=== PATIENT | female | born 1980 | race Caucasian/White ===

== ENCOUNTER → 2017-01-22 | Outpatient (REF) | payer OTHER | LOC: M LABDRAW1 15:22 | PROVIDERS: ATTEND Physician Assistant Medical | DX: E55.9 Vitamin D deficiency, unspecified (principal) ==

== ENCOUNTER → 2017-05-20 | Outpatient (REF) | payer OTHER | LOC: M LABDRAW1 13:38 | PROVIDERS: ATTEND Internal Medicine Endocrinology, Diabetes & Metabolism | DX: E55.9 Vitamin D deficiency, unspecified (principal) ==

== ENCOUNTER → 2018-03-10 | Outpatient (CLI) | payer OTHER | LOC: M SLEEP HO 12:21 | DX: G47.30 Sleep apnea, unspecified (principal) | CPT/HCPCS: G0399 ==

== ENCOUNTER → 2018-07-04 | Outpatient (REF) | payer OTHER | LOC: M SFHCPLAZ 16:59 | DX: N30.01 Acute cystitis with hematuria (principal) ==

== ENCOUNTER → 2018-08-06 | Outpatient (REF) | payer OTHER ==
[2018-08-06 12:44] LABS: ALBUMIN 3.6 GM/DL (3.2-5.2); ALBUMIN/GLOBULIN RATIO 1.33 (1.00-1.93); ALKALINE PHOSPHATASE 62 U/L (45-117); ALT/SGPT 22 U/L (12-78); ANION GAP 6 MEQ/L (8-16); AST/SGOT 10 U/L (7-37); BILIRUBIN,TOTAL 0.5 MG/DL (0.2-1.0); BLOOD UREA NITROGEN 15 MG/DL (7-18); CALCIUM LEVEL 8.8 MG/DL (8.5-10.1); CARBON DIOXIDE LEVEL 28 MEQ/L (21-32); CHLORIDE LEVEL 108 MEQ/L (98-107); CREATININE FOR GFR 0.83 MG/DL (0.55-1.30); GLOMERULAR FILTRATION RATE > 60.0 (>60); GLUCOSE, FASTING 88 MG/DL (70-100); POTASSIUM SERUM 4.5 MEQ/L (3.5-5.1); SODIUM LEVEL 142 MEQ/L (136-145); TOTAL PROTEIN 6.3 GM/DL (6.4-8.2)
[2018-08-06 13:01] LABS: TOTAL 25(OH) VITAMIN D 20.3 NG/ML (30.0-100.0)
== END ==
LOC: M SFHCPLAZ 08:58
DX: Z00.00 Encounter for general adult medical examination without abnormal findings (principal); Z86.39 Personal history of other endocrine, nutritional and metabolic disease; E55.9 Vitamin D deficiency, unspecified

== ENCOUNTER → 2018-08-19 | Outpatient (CLI) | payer OTHER | LOC: M RAD 09:15 | DX: E04.2 Nontoxic multinodular goiter (principal) | CPT/HCPCS: 76536 ==

== ENCOUNTER → 2018-09-26 | Outpatient (REF) | payer OTHER | LOC: M SMT 12:15 | DX: N39.0 Urinary tract infection, site not specified (principal) | CPT/HCPCS: 87086 ==

== ENCOUNTER → 2018-10-16 | Outpatient (CLI) | payer OTHER ==
--- NOTE | 2018-10-23 14:34 | SLEEPCENT ---
DATE OF PROCEDURE: 10/16/2018 INTERPRETATION: Nocturnal polysomnography was performed to determine pressure therapy in this patient with at least mid obstructive sleep apnea determined on a home sleep test with an respiratory arousal index (PALACIOS) of at least 5.1. She had sleep apnea syndrome symptoms consistent with excessive daytime sleepiness and nonrestorative sleep. She had failed outpatient auto CPAP in large part because of poor mask fit and significant leak. A total of 7 hours and 40 minutes of data was reviewed with 440.5 minutes identified during the entire titration. Sleep latency was 12.5 minutes. Rapid eye movement (REM) latency was 157.5 minutes. All stages of sleep were identified. Sleep efficiency was 96.7%. EKG showed normal sinus rhythm with an average heart rate of 80 beats per minute. No epileptiform discharge observed. The patient had been fit with ResMed Quattro full face mask of small size, 4 cm of water pressure was applied to the circuit and the lights were dimmed. CPAP initially begun at 4 cm of water pressure and was taken to a high of 8 cm of water pressure. However, she appeared to do best on 6 cm of water pressure, her apnea/hypopneic index (AHI) was 0 and her PALACIOS was 0.3, Oxygen saturation shanel was 90%. No significant periodic limb movements. Supine REM sleep was seen on this pressure with a reasonably good waveform. IMPRESSION: 1. Obstructive sleep apnea, at least mild, reasonably palliated on CPAP of 6 cm of water pressure including supine REM sleep. RECOMMENDATION: Recommend continuation with CPAP therapy at the above pressure via a ResMed Quattro full face mask or mask of her preference. Clinical correlation will be necessary to insure eradication of symptoms.
== END ==
LOC: M SLEEP 19:51
PROVIDERS: ATTEND Internal Medicine Pulmonary Disease
DX: G47.33 Obstructive sleep apnea (adult) (pediatric) (principal)

== ENCOUNTER → 2019-08-17 | Outpatient (CLI) | payer OTHER ==
--- NOTE | 2019-08-17 18:19 | REP ---
Clinical: Thyroid nodule. Technique: Real time hawley scale ultrasound examination using linear high frequency transducer. Comparison: 08/19/2018. Findings: Left thyroid lobe measures 4.6 x 1.5 x 1.2 cm and includes 3 x 2 x 2 mm upper pole stable cyst and 1.0 x 0.8 x 0.9 cm stable complex mid pole nodule. Right lobe measures 4.8 x 2.0 x 2.0 cm and includes 1.1 x 0.7 x 1.0 cm stable isoechoic mid pole nodule, 0.7 x 0.4 x 0.7 cm stable complex lower pole cyst, 0.7 x 0.4 x 0.7 cm stable mid/upper pole cyst, and new 0.7 x 0.5 x 0.8 cm solid mid pole nodule. Impression: 1. With the exception of a new solid nonspecific nodule in the right thyroid lobe, the remainder of the bilateral findings are stable. Electronically Signed by John Becerril MD 08/17/2019 06:11 P
== END ==
LOC: M RAD 07:37
PROVIDERS: ATTEND Family Medicine
DX: Z86.39 Personal history of other endocrine, nutritional and metabolic disease (principal); E04.1 Nontoxic single thyroid nodule

== ENCOUNTER 2020-04-22 12:30 | Outpatient (RCR) | payer OTHER | END 2020-04-26 | LOC: M PT 12:30 | PROVIDERS: ATTEND Family Medicine | DX: M25.562 Pain in left knee (principal) ==

== ENCOUNTER 2020-05-26 13:00 | Outpatient (RCR) | payer OTHER | END 2020-05-27 | LOC: M PT 13:00 | PROVIDERS: ATTEND Family Medicine | DX: M25.562 Pain in left knee (principal) ==

== ENCOUNTER → 2020-08-30 | Outpatient (REF) | payer OTHER ==
[2020-08-30 15:09] LABS: FREE T4 1.04 NG/DL (0.76-1.46); THYROID STIMULATING HORMONE 1.07 uIU/ML (0.358-3.740)
== END ==
LOC: M PLALAB 11:24
PROVIDERS: ATTEND Family Medicine
DX: E04.1 Nontoxic single thyroid nodule (principal)

== ENCOUNTER → 2020-08-30 | Outpatient (CLI) | payer OTHER ==
--- NOTE | 2020-08-30 12:06 | REP ---
INDICATION: E04.1 F/U THYROID NODULE. COMPARISON: Comparison thyroid sonography August 17, 2019. A prior study is also reviewed from [facility] dated 2014.. TECHNIQUE: High-resolution bilateral thyroid sonography. FINDINGS: Thyroid isthmus is 0.4 cm thick. Right lobe dimensions are 4.9 x 1.3 x 2.0 cm. Left lobe measures 4.3 x 1.4 x 1.4 cm. Multiple nodules are visualized again. The right lobe, there is a benign cyst measuring 8 mm in greatest diameter which is unchanged. At mid pole level, there is a 9 mm solid hypo slightly hypoechoic nodule. At the inferior pole of the right lobe there is a 6 mm complex nodule. At mid pole level on the left there is a complex predominantly solid nodule measuring 10 mm in greatest diameter. These appear to be essentially unchanged from the most recent comparison study. No new nodule is seen. No one nodule appears more suspicious than the other. IMPRESSION: Multinodular thyroid unchanged from the most recent prior study 08/17/2019. <Electronically signed by Ruel Medina > 08/30/20 [id number]
== END ==
LOC: M WHC 10:55
PROVIDERS: ATTEND Family Medicine
DX: E04.2 Nontoxic multinodular goiter (principal)

== ENCOUNTER → 2020-10-03 | Outpatient (CLI) | payer SELFPAY | LOC: M LABSMTC 12:40 | PROVIDERS: ATTEND Pediatrics | DX: Z20.828 Contact with and (suspected) exposure to other viral communicable diseases (principal) ==

== ENCOUNTER 2021-07-05 11:53 | Emergency (ER) | payer OTHER ==
[~2021-07-05] VITALS: Ht 167.6 cm; Wt 118.2 kg
[2021-07-05 11:53] VITALS: BP 134/65
== END 2021-07-05 15:13 | disposition left against medical advice (07) ==
LOC: M ED 11:53
DX: Z53.21 Procedure and treatment not carried out due to patient leaving prior to being seen by health care provider (principal)

== ENCOUNTER → 2022-02-03 | Outpatient (CLI) | payer OTHER ==
[2022-02-03 11:44] LABS: BASO # 0.1 10^3/uL (0.0-0.2); BASO % 0.9 % (0.0-1.0); EOS # 0.1 10^3/uL (0.0-0.5); EOS % 1.5 % (0.0-3.0); HEMATOCRIT 44.4 % (36.0-47.0); HEMOGLOBIN 15.2 g/dl (12.0-15.5); LYMPH # 2.2 10^3/uL (1.5-5.0); LYMPH % 24.1 % (24.0-44.0); MEAN CORPUSCULAR HEMOGLOBIN 29.6 pg (27.0-33.0); MEAN CORPUSCULAR HGB CONC 34.2 g/dl (32.0-36.5); MEAN CORPUSCULAR VOLUME 86.4 fl (80.0-96.0); MONO # 0.6 10^3/uL (0.0-0.8); MONO % 6.7 % (2.0-8.0); NEUTROPHILS # 6.2 10^3/uL (1.5-8.5); NEUTROPHILS % 66.2 % (36.0-66.0); PLATELET COUNT, AUTOMATED 303 10^3/uL (150-450); RED BLOOD COUNT 5.14 10^6/uL (4.00-5.40); WHITE BLOOD COUNT 9.3 10^3/uL (4.0-10.0)
[2022-02-03 12:21] LABS: ALBUMIN 3.6 GM/DL (3.2-5.2); ALT/SGPT 19 U/L (12-78); BILIRUBIN,TOTAL 0.7 MG/DL (0.2-1.0); BLOOD UREA NITROGEN 14 MG/DL (7-18); CALCIUM LEVEL 8.7 MG/DL (8.5-10.1); CARBON DIOXIDE LEVEL 26 MEQ/L (21-32); CHLORIDE LEVEL 109 MEQ/L (98-107); CHOLESTEROL LEVEL 152 MG/DL (<200); CHOLESTEROL RISK RATIO 4.342 (<5); FERRITIN 74 NG/ML (8-252); GLOMERULAR FILTRATION RATE > 60.0 (>58); GLUCOSE, FASTING 106 MG/DL (70-100); HDL CHOLESTEROL 35 MG/DL (>40); IRON (FE) 140 UG/DL (50-170); LDL CHOLESTEROL 83 MG/DL (<100); NON-HDL-C 117 MG/DL; PERCENT SATURATION 36.7 % (13.2-45.0); POTASSIUM SERUM 4.3 MEQ/L (3.5-5.1); SODIUM LEVEL 139 MEQ/L (136-145); TOTAL IRON BINDING CAPACITY 381 UG/DL (250-450); TOTAL PROTEIN 6.6 GM/DL (6.4-8.2); TRIGLYCERIDES LEVEL 168 MG/DL (<150)
[2022-02-03 12:22] LABS: HEMOGLOBIN A1c 5.5 %
[2022-02-05 08:54] LABS: TOTAL 25(OH) VITAMIN D 14.6 NG/ML (30.0-100.0); VITAMIN B12 LEVEL 273 PG/ML (247-911)
== END ==
LOC: M LAB 10:59
PROVIDERS: ATTEND Nurse Practitioner Family
DX: Z01.812 Encounter for preprocedural laboratory examination (principal); Z13.220 Encounter for screening for lipoid disorders; D51.9 Vitamin B12 deficiency anemia, unspecified; E55.9 Vitamin D deficiency, unspecified; E66.01 Morbid (severe) obesity due to excess calories

== ENCOUNTER → 2022-04-04 | Outpatient (CLI) | payer OTHER ==
[2022-04-04 11:09] LABS: BLOOD UREA NITROGEN 13 MG/DL (7-18); CALCIUM LEVEL 8.8 MG/DL (8.5-10.1); CARBON DIOXIDE LEVEL 27 MEQ/L (21-32); CHLORIDE LEVEL 107 MEQ/L (98-107); CREATININE FOR GFR 0.92 MG/DL (0.55-1.30); GLOMERULAR FILTRATION RATE > 60.0 (>58); GLUCOSE, FASTING 125 MG/DL (70-100); NT-PRO BNP 50 PG/ML (<125); POTASSIUM SERUM 4.3 MEQ/L (3.5-5.1); SODIUM LEVEL 138 MEQ/L (136-145)
== END ==
LOC: M PLALAB 07:42
PROVIDERS: ATTEND Family Medicine
DX: R60.0 Localized edema (principal)

== ENCOUNTER → 2022-09-12 | Outpatient (REF) | payer OTHER | LOC: M SFHCPLAZ 09:51 | PROVIDERS: ATTEND Physician Assistant | DX: R30.0 Dysuria (principal) ==

== ENCOUNTER → 2022-10-23 | Outpatient (CLI) | payer OTHER ==
[2022-10-23 17:19] LABS: BASO # 0.1 10^3/uL (0.0-0.2); BASO % 0.4 % (0.0-1.0); EOS # 0.2 10^3/uL (0.0-0.5); EOS % 1.7 % (0.0-3.0); HEMOGLOBIN 13.8 g/dl (12.0-15.5); LYMPH # 2.6 10^3/uL (1.5-5.0); MEAN CORPUSCULAR HEMOGLOBIN 28.6 pg (27.0-33.0); MEAN CORPUSCULAR HGB CONC 32.1 g/dl (32.0-36.5); MONO # 0.8 10^3/uL (0.0-0.8); MONO % 6.9 % (2.0-8.0); NEUTROPHILS # 7.8 10^3/uL (1.5-8.5); NEUTROPHILS % 67.6 % (36.0-66.0); PLATELET COUNT, AUTOMATED 348 10^3/uL (150-450); RED BLOOD COUNT 4.83 10^6/uL (4.00-5.40); WHITE BLOOD COUNT 11.5 10^3/uL (4.0-10.0)
[2022-10-23 17:32] LABS: ERYTHROCYTE SEDIMENTATION RATE 24 mm/hr (0-20)
[2022-10-23 17:43] LABS: URIC ACID 5.6 MG/DL (3.1-7.8)
[2022-10-23 17:46] LABS: ALBUMIN 3.4 G/DL (3.2-5.2); ALKALINE PHOSPHATASE 57 U/L (46-116); ALT/SGPT 26 U/L (7.0-40); AST/SGOT 25 U/L (<34); BILIRUBIN,TOTAL 0.4 MG/DL (0.3-1.2); BLOOD UREA NITROGEN 16 MG/DL (9-23); CALCIUM LEVEL 8.9 MG/DL (8.5-10.1); CARBON DIOXIDE LEVEL 27 MMOL/L (20-31); CHLORIDE LEVEL 105 MMOL/L (98-107); CREATININE FOR GFR 0.73 MG/DL (0.55-1.30); GLOMERULAR FILTRATION RATE > 60.0 (>58); GLUCOSE, FASTING 92 MG/DL (60-100); POTASSIUM SERUM 4.3 MMOL/L (3.5-5.1); SODIUM LEVEL 140 MMOL/L (136-145); TOTAL PROTEIN 6.2 G/DL (5.7-8.2)
[2022-10-23 17:48] LABS: RHEUMATOID FACTOR QUANT < 3.5 IU/ML (<14)
[2022-10-23 17:49] LABS: THYROID STIMULATING HORMONE 0.743 uIU/ML (0.55-4.78)
== END ==
LOC: M PLALAB 14:18
PROVIDERS: ATTEND Physician Assistant
DX: M25.50 Pain in unspecified joint (principal)

== ENCOUNTER → 2023-02-15 | Outpatient (CLI) | payer OTHER | LOC: M RAD 08:06 | PROVIDERS: ATTEND Physician Assistant | DX: D17.5 Benign lipomatous neoplasm of intra-abdominal organs (principal) ==

== ENCOUNTER → 2023-02-15 | Outpatient (CLI) | payer OTHER ==
[2023-02-15 11:32] LABS: BASO # 0.1 10^3/uL (0.0-0.2); BASO % 0.6 % (0.0-1.0); EOS # 0.1 10^3/uL (0.0-0.5); EOS % 0.7 % (0.0-3.0); HEMATOCRIT 39.9 % (36.0-47.0); HEMOGLOBIN 13.2 g/dl (12.0-15.5); LYMPH # 1.9 10^3/uL (1.5-5.0); LYMPH % 22.3 % (24.0-44.0); MEAN CORPUSCULAR HEMOGLOBIN 30.1 pg (27.0-33.0); MEAN CORPUSCULAR HGB CONC 33.1 g/dl (32.0-36.5); MEAN CORPUSCULAR VOLUME 90.9 fl (80.0-96.0); MONO # 0.7 10^3/uL (0.0-0.8); MONO % 7.5 % (2.0-8.0); NEUTROPHILS # 5.9 10^3/uL (1.5-8.5); NEUTROPHILS % 68.7 % (36.0-66.0); PLATELET COUNT, AUTOMATED 287 10^3/uL (150-450); RED BLOOD COUNT 4.39 10^6/uL (4.00-5.40); WHITE BLOOD COUNT 8.6 10^3/uL (4.0-10.0)
[2023-02-15 12:06] LABS: ALBUMIN 3.4 G/DL (3.2-5.2); ALKALINE PHOSPHATASE 60 U/L (46-116); ALT/SGPT 22 U/L (7.0-40); AST/SGOT 17 U/L (<34); BILIRUBIN,TOTAL 0.5 MG/DL (0.3-1.2); BLOOD UREA NITROGEN 14 MG/DL (9-23); CALCIUM LEVEL 8.7 MG/DL (8.5-10.1); CARBON DIOXIDE LEVEL 29 MMOL/L (20-31); CHLORIDE LEVEL 108 MMOL/L (98-107); CREATININE FOR GFR 0.73 MG/DL (0.55-1.30); GLOMERULAR FILTRATION RATE > 60.0 (>58); GLUCOSE, FASTING 74 MG/DL (60-100); IRON (FE) 67 UG/DL (50-170); PERCENT SATURATION 29.5 % (13.2-45.0); POTASSIUM SERUM 4.1 MMOL/L (3.5-5.1); SODIUM LEVEL 142 MMOL/L (136-145); TOTAL IRON BINDING CAPACITY 227 UG/DL (250-425); TOTAL PROTEIN 6.1 G/DL (5.7-8.2)
[2023-02-15 12:10] LABS: FERRITIN 110.9 NG/ML (7.3-270.7); TOTAL 25(OH) VITAMIN D 40.1 NG/ML (20.0-100.0); VITAMIN B12 LEVEL 1227 PG/ML (211-911)
== END ==
LOC: M PLALAB 08:51
PROVIDERS: ATTEND Nurse Practitioner Family
DX: Z01.812 Encounter for preprocedural laboratory examination (principal); D51.9 Vitamin B12 deficiency anemia, unspecified; E51.9 Thiamine deficiency, unspecified; E66.01 Morbid (severe) obesity due to excess calories; E55.9 Vitamin D deficiency, unspecified

== ENCOUNTER → 2023-11-22 | Outpatient (CLI) | payer OTHER ==
[2023-11-22 14:04] LABS: BASO # 0.1 10^3/uL (0.0-0.2); BASO % 1.4 % (0.0-1.0); EOS # 0.1 10^3/uL (0.0-0.5); EOS % 2.6 % (0.0-3.0); HEMATOCRIT 39.1 % (36.0-47.0); HEMOGLOBIN 13.4 g/dl (12.0-15.5); LYMPH # 1.8 10^3/uL (1.5-5.0); LYMPH % 35.3 % (24.0-44.0); MEAN CORPUSCULAR HEMOGLOBIN 31.9 pg (27.0-33.0); MEAN CORPUSCULAR HGB CONC 34.3 g/dl (32.0-36.5); MEAN CORPUSCULAR VOLUME 93.1 fl (80.0-96.0); MONO # 0.4 10^3/uL (0.0-0.8); MONO % 7.3 % (2.0-8.0); NEUTROPHILS # 2.7 10^3/uL (1.5-8.5); NEUTROPHILS % 53.2 % (36.0-66.0); PLATELET COUNT, AUTOMATED 263 10^3/uL (150-450); WHITE BLOOD COUNT 5.1 10^3/uL (4.0-10.0)
[2023-11-22 14:33] LABS: ALBUMIN 3.7 G/DL (3.2-5.2); ALKALINE PHOSPHATASE 44 U/L (46-116); ALT/SGPT 20 U/L (7.0-40); AST/SGOT 14 U/L (<34); BILIRUBIN,TOTAL 0.4 MG/DL (0.3-1.2); BLOOD UREA NITROGEN 15 MG/DL (9-23); CALCIUM LEVEL 8.9 MG/DL (8.5-10.1); CARBON DIOXIDE LEVEL 30 MMOL/L (20-31); CHLORIDE LEVEL 107 MMOL/L (98-107); CHOLESTEROL LEVEL 105 MG/DL (<200); CHOLESTEROL RISK RATIO 2.24 (<5); CREATININE FOR GFR 0.71 MG/DL (0.55-1.30); FERRITIN 99.5 NG/ML (7.3-270.7); FREE T4 1.07 NG/DL (0.89-1.76); GLOMERULAR FILTRATION RATE > 60.0 (>58); GLUCOSE, FASTING 78 MG/DL (60-100); HDL CHOLESTEROL 46.7 MG/DL (>40); IRON (FE) 71 UG/DL (50-170); LDL CHOLESTEROL 43.5 MG/DL (<100); NON-HDL-C 58.3 MG/DL; POTASSIUM SERUM 3.9 MMOL/L (3.5-5.1); SODIUM LEVEL 140 MMOL/L (136-145); THYROID STIMULATING HORMONE 1.275 uIU/ML (0.55-4.78); TOTAL 25(OH) VITAMIN D 35.2 NG/ML (20.0-100.0); TOTAL IRON BINDING CAPACITY 263 UG/DL (250-425); TOTAL PROTEIN 6.3 G/DL (5.7-8.2); TRIGLYCERIDES LEVEL 74 MG/DL (<150)
[2023-11-22 14:34] LABS: VITAMIN B12 LEVEL 880 PG/ML (211-911)
== END ==
LOC: M PLALAB 09:10
PROVIDERS: ATTEND Physician Assistant
DX: Z01.89 Encounter for other specified special examinations (principal); L40.9 Psoriasis, unspecified; E55.9 Vitamin D deficiency, unspecified; R53.83 Other fatigue; Z15.89 Genetic susceptibility to other disease; Z13.220 Encounter for screening for lipoid disorders; R76.8 Other specified abnormal immunological findings in serum; E04.1 Nontoxic single thyroid nodule

== ENCOUNTER → 2024-05-26 | Outpatient (REF) | payer OTHER | LOC: M SFHCDERM 07:59 | PROVIDERS: ATTEND Physician Assistant | DX: L40.9 Psoriasis, unspecified (principal); Z53.9 Procedure and treatment not carried out, unspecified reason ==

== ENCOUNTER → 2024-05-26 | Outpatient (CLI) | payer OTHER ==
[2024-05-26 09:48] LABS: HEMATOCRIT 35.7 % (36.0-47.0); HEMOGLOBIN 12.1 g/dl (12.0-15.5); MEAN CORPUSCULAR HEMOGLOBIN 31.3 pg (27.0-33.0); MEAN CORPUSCULAR HGB CONC 33.9 g/dl (32.0-36.5); MEAN CORPUSCULAR VOLUME 92.2 fl (80.0-96.0); PLATELET COUNT, AUTOMATED 233 10^3/uL (150-450); RED BLOOD COUNT 3.87 10^6/uL (4.00-5.40); WHITE BLOOD COUNT 6.3 10^3/uL (4.0-10.0)
[2024-05-26 10:30] LABS: ALBUMIN 3.5 G/DL (3.2-5.2); ALKALINE PHOSPHATASE 47 U/L (46-116); ALT/SGPT 19 U/L (7.0-40); AST/SGOT 11 U/L (<34); BILIRUBIN,TOTAL 0.6 MG/DL (0.3-1.2); BLOOD UREA NITROGEN 14 MG/DL (9-23); CALCIUM LEVEL 8.6 MG/DL (8.5-10.1); CARBON DIOXIDE LEVEL 29 MMOL/L (20-31); CHLORIDE LEVEL 108 MMOL/L (98-107); CHOLESTEROL LEVEL 100 MG/DL (<200); CREATININE FOR GFR 0.73 MG/DL (0.55-1.30); GLOMERULAR FILTRATION RATE > 60.0 (>58); GLUCOSE, FASTING 76 MG/DL (60-100); HDL CHOLESTEROL 47.6 MG/DL (>40); LDL CHOLESTEROL 41.4 MG/DL (<100); NON-HDL-C 52.4 MG/DL; POTASSIUM SERUM 4.1 MMOL/L (3.5-5.1); SODIUM LEVEL 142 MMOL/L (136-145); TOTAL PROTEIN 5.6 G/DL (5.7-8.2); TRIGLYCERIDES LEVEL 55 MG/DL (<150)
[2024-05-26 12:55] LABS: HEPATITIS B SURFACE ANTIBODY NEGATIVE (POSITIVE)
[2024-05-26 13:07] LABS: HEPATITIS B SURFACE ANTIGEN NEGATIVE (NEGATIVE)
[2024-05-26 13:20] LABS: HIV 1&2 SCREEN NEGATIVE (NEGATIVE)
[2024-05-26 13:28] LABS: HEPATITIS C VIRUS ABY INDEX < 0.02 INDEX (<0.8)
== END ==
LOC: M LAB 08:27
PROVIDERS: ATTEND Physician Assistant
DX: L40.9 Psoriasis, unspecified (principal)

== ENCOUNTER → 2024-08-26 | Outpatient (REF) | payer OTHER ==
[2024-08-28 14:48] LABS: HPV APTIMA Not Detected (Not Detected)
== END ==
LOC: M SFHCWAGY 13:14
PROVIDERS: ATTEND Specialist
DX: Z01.419 Encounter for gynecological examination (general) (routine) without abnormal findings (principal)
CPT/HCPCS: 87624; G0123

== ENCOUNTER → 2024-09-21 | Outpatient (CLI) | payer OTHER | LOC: M WHC 16:34 | PROVIDERS: ATTEND Specialist | DX: Z12.31 Encounter for screening mammogram for malignant neoplasm of breast (principal); R92.333 Mammographic heterogeneous density, bilateral breasts ==

== ENCOUNTER → 2024-11-25 | Outpatient (CLI) | payer OTHER ==
[2024-11-25 15:26] LABS: HEMOGLOBIN 13.5 g/dl (12.0-15.5); MEAN CORPUSCULAR HEMOGLOBIN 30.5 pg (27.0-33.0); MEAN CORPUSCULAR HGB CONC 33.8 g/dl (32.0-36.5); MEAN CORPUSCULAR VOLUME 90.5 fl (80.0-96.0); PLATELET COUNT, AUTOMATED 325 10^3/uL (150-450); RED BLOOD COUNT 4.42 10^6/uL (4.00-5.40); WHITE BLOOD COUNT 8.6 10^3/uL (4.0-10.0)
[2024-11-25 15:35] LABS: CHOLESTEROL RISK RATIO 1.88 (<5); HDL CHOLESTEROL 56.8 MG/DL (>40); LDL CHOLESTEROL 39.8 MG/DL (<100); NON-HDL-C 50.2 MG/DL; PERCENT SATURATION 47.8 % (13.2-45.0); THYROID STIMULATING HORMONE 1.189 uIU/ML (0.55-4.78); TOTAL 25(OH) VITAMIN D 31.8 NG/ML (20.0-100.0)
[2024-11-25 15:36] LABS: FERRITIN 86.1 NG/ML (7.3-270.7)
[2024-11-25 15:38] LABS: FREE T4 1.18 NG/DL (0.89-1.76)
[2024-11-25 16:31] LABS: HEMOGLOBIN A1c 4.8 % (4.0-6.0)
== END ==
LOC: M PLALAB 11:58
PROVIDERS: ATTEND Nurse Practitioner Family
DX: E55.9 Vitamin D deficiency, unspecified (principal); Z98.84 Bariatric surgery status; Z13.220 Encounter for screening for lipoid disorders; Z13.1 Encounter for screening for diabetes mellitus; Z13.29 Encounter for screening for other suspected endocrine disorder

== ENCOUNTER → 2024-11-25 | Outpatient (CLI) | payer OTHER ==
[2024-11-25 15:26] LABS: HEMOGLOBIN 13.4 g/dl (12.0-15.5); MEAN CORPUSCULAR HEMOGLOBIN 30.5 pg (27.0-33.0); MEAN CORPUSCULAR HGB CONC 33.5 g/dl (32.0-36.5); MEAN CORPUSCULAR VOLUME 90.9 fl (80.0-96.0); PLATELET COUNT, AUTOMATED 316 10^3/uL (150-450)
[2024-11-25 15:32] LABS: ALBUMIN 3.8 G/DL (3.2-5.2); ALKALINE PHOSPHATASE 51 U/L (35-104); ALT/SGPT 21 U/L (7.0-40); AST/SGOT 13 U/L (<34); BILIRUBIN,TOTAL 0.5 MG/DL (0.3-1.2); BLOOD UREA NITROGEN 20 MG/DL (9-23); CARBON DIOXIDE LEVEL 29 MMOL/L (20-31); CHLORIDE LEVEL 104 MMOL/L (98-107); GLOMERULAR FILTRATION RATE > 60.0 (>58); GLUCOSE, FASTING 87 MG/DL (60-100); POTASSIUM SERUM 4.3 MMOL/L (3.5-5.1); SODIUM LEVEL 144 MMOL/L (136-145); TOTAL PROTEIN 6.7 G/DL (5.7-8.2)
== END ==
LOC: M PLALAB 11:56
PROVIDERS: ATTEND Plastic Surgery
DX: Z01.812 Encounter for preprocedural laboratory examination (principal)

== ENCOUNTER → 2024-12-24 | Outpatient (CLI) | payer OTHER | LOC: M RAD 11:14 | PROVIDERS: ATTEND Specialist | DX: N92.0 Excessive and frequent menstruation with regular cycle (principal) ==

== ENCOUNTER → 2025-05-24 | Outpatient (CLI) | payer OTHER | LOC: M WHC 09:37 | PROVIDERS: ATTEND Student in an Organized Health Care Education/Training Program | DX: E04.2 Nontoxic multinodular goiter (principal) ==

== ENCOUNTER → 2025-05-24 | Outpatient (CLI) | payer OTHER | LOC: M PLALAB 10:30 | PROVIDERS: ATTEND Physician Assistant | DX: Z79.899 Other long term (current) drug therapy (principal) ==

== ENCOUNTER → 2025-08-31 | Outpatient (REF) | payer OTHER ==
[2025-09-02 09:53] LABS: HPV APTIMA Not Detected (Not Detected)
== END ==
LOC: M SFHCWAGY 10:29
PROVIDERS: ATTEND Specialist
DX: Z12.4 Encounter for screening for malignant neoplasm of cervix (principal)
CPT/HCPCS: 87624; G0123

== ENCOUNTER → 2025-08-31 | Outpatient (CLI) | payer OTHER | LOC: M WHC 08:13 | PROVIDERS: ATTEND Specialist | DX: Z12.31 Encounter for screening mammogram for malignant neoplasm of breast (principal) ==

== ENCOUNTER → 2025-09-07 | Outpatient (REF) | payer OTHER | LOC: M SFHCPLAZ 11:12 | PROVIDERS: ATTEND Family Medicine | DX: Z53.9 Procedure and treatment not carried out, unspecified reason (principal) ==

== ENCOUNTER → 2025-09-22 | Outpatient (CLI) | payer OTHER | LOC: M WHC 11:05 | PROVIDERS: ATTEND Specialist | DX: Z12.31 Encounter for screening mammogram for malignant neoplasm of breast (principal) ==